=== PATIENT | female | born 1995 ===

== ENCOUNTER 2017-02-19 16:20 | Emergency (ER) | payer MEDICAID, OTHER ==
[2017-02-19 16:21] VITALS: BMI 33.1
[2017-02-19 16:34] VITALS: BP 119/70; PULSE 90; RESP 16; TEMP 97.8; O2SAT 97
--- NOTE | 2017-02-19 17:20 | ED PDOC ---
HPI: Back Time Seen by Provider: 02/19/17 16:35 Chief Complaint (Nursing): Back Pain Chief Complaint (Provider): Back Pain History Per: Patient History/Exam Limitations: no limitations Onset/Duration Of Symptoms: Days (x3 days) Current Symptoms Are (Timing): Still Present Additional Complaint(s): 21 y/o female presents to the emergency department with a complaint of a lower left mid back pain x3 days. Patient states pain had worsened within the last couple of days. Denies heavy lifting, pain during urination, bloody urine, abdominal pain, nausea, vomiting, or fever. Of note, patient admits being diagnosed with pyelonephritis 2 times in the past. PMD: Dr. Jose Ayala MD Past Medical History Reviewed: Historical Data (Pyelonephritis 2x), Nursing Documentation, Vital Signs Vital Signs: Last Vital Signs Temp 97.8 F 02/19/17 16:32 Pulse 90 02/19/17 16:32 Resp 16 02/19/17 16:32 BP 119/70 02/19/17 16:32 Pulse Ox 97 02/19/17 16:32 - Medical History PMH: Asthma (mild intermittent) - Family History Family History: States: Unknown Family Hx - Social History Current smoker - smoking cessation education provided: No Alcohol: None Drugs: Denies - Home Medications Home Medications: Ambulatory Orders Medication Instructions Recorded Nitrofurantoin Macrocrystals 100 mg PO BID #14 cap 02/19/17 [Macrobid] - Allergies Allergies/Adverse Reactions: Allergies Allergy/AdvReac Type Severity Reaction Status Date / Time shrimp Allergy RASH Verified 02/19/17 16:31 Review of Systems ROS Statement: Except As Marked, All Systems Reviewed And Found Negative Constitutional: Negative for: Fever Gastrointestinal: Negative for: Nausea, Vomiting, Abdominal Pain Genitourinary Female: Negative for: Dysuria, Hematuria Musculoskeletal: Positive for: Back Pain (Lower) Physical Exam - Reviewed Nursing Documentation Reviewed: Yes Vital Signs Reviewed: Yes - Physical Exam Appears: Positive for: Non-toxic, No Acute Distress Head Exam: Positive for: ATRAUMATIC, NORMOCEPHALIC Skin: Positive for: Normal Color, Warm, Dry Neck: Positive for: Normal, Supple Cardiovascular/Chest: Positive for: Regular Rate, Rhythm. Negative for: Murmur Respiratory: Positive for: Normal Breath Sounds. Negative for: Accessory Muscle Use, Respiratory Distress Gastrointestinal/Abdominal: Positive for: Normal Exam, Soft. Negative for: Tenderness (No suprapubic tenderness) Back: Positive for: L CVA Tenderness. Negative for: Other (No midline or lumbar tenderness) Extremity: Positive for: Normal ROM. Negative for: Pedal Edema Neurologic/Psych: Positive for: Alert, Oriented - ECG O2 Sat by Pulse Oximetry: 97 (RA) Pulse Ox Interpretation: Normal Medical Decision Making Medical Decision Making: Time: 16:35 Initial impression: Kidney stones vs Urinary Tract Infection vs Pyelonephritis Initial plan: --ED Urine Dipstick (POC) --UPreg --ABD & Pelvis w/o PO or IV Contrast (CT)-no acute findings. --Ultram 50 mg PO --Urinalysis Stat --Revaluation Time: 17:47 --Abdominal CT shows no sign of abnormality and is negative for stones. ---Ua: shows UTI will tx with macrobid and send for culture. advised to f.u with pmd for further eval and if with fever chills nausea to return to ED. VS stable pt understands and agrees. IMPRESSION: No acute findings related to/accounting for the clinical presentation. Additional benign and/or incidental findings described above. Scribe Attestation: Documented by Vera Montiel, acting as a scribe for Maryann Alberts PA-C. Provider Scribe Attestation: All medical record entries made by the Scribe were at my direction and personally dictated by me. I have reviewed the chart and agree that the record accurately reflects my personal performance of the history, physical exam, medical decision making, and the department course for this patient. I have also personally directed, reviewed, and agree with the discharge instructions and disposition. Disposition - Clinical Impression Clinical Impression: UTI (urinary tract infection) - Patient ED Disposition Is Patient to be Admitted: No Counseled Patient/Family Regarding: Studies Performed, Diagnosis, Need For Followup, Rx Given - Disposition Referrals: [facility] [Outside] formerly [facility] [Outside] Disposition: Routine/Home Disposition Time: 18:08 Condition: STABLE Prescriptions: Nitrofurantoin Macrocrystals [Macrobid] 100 mg PO BID #14 cap Instructions: Urinary Tract Infection in Women (ED)
--- NOTE | 2017-02-19 17:49 | CT ---
PROCEDURE: CT Abdomen and Pelvis without intravenous or oral contrast HISTORY: left CVA tenderness COMPARISON: None. TECHNIQUE: Technique Contiguous axial images of the abdomen and pelvis without intravenous or oral contrast. Radiation dose: Total exam DLP = 1013.91 mGy-cm. This CT exam was performed using one or more of the following dose reduction techniques: Automated exposure control, adjustment of the mA and/or kV according to patient size, and/or use of iterative reconstruction technique. FINDINGS: LOWER THORAX: Unremarkable. LIVER: Hepatic steatosis. No focal masses. No intrahepatic bile duct dilatation or perihepatic ascites. GALLBLADDER AND BILE DUCTS: Unremarkable. PANCREAS: Unremarkable. No ductal dilatation. SPLEEN: Unremarkable. No splenomegaly. ADRENALS: Unremarkable. KIDNEYS AND URETERS: Unremarkable. No hydronephrosis. BLADDER: Unremarkable. No calculus. REPRODUCTIVE: Unremarkable. APPENDIX: Unremarkable. Normal appendix. STOMACH AND BOWEL: Unremarkable. No obstruction. No gross mural thickening. PERITONEUM: Unremarkable. No significant fluid collection. No free air. LYMPH NODES: Unremarkable. No enlarged lymph nodes. VASCULATURE: Unremarkable. No aortic aneurysm. BONES: No acute fracture. OTHER FINDINGS: None . IMPRESSION: No acute findings related to/accounting for the clinical presentation. Additional benign and/or incidental findings described above.
[2017-02-19 18:03] LABS: RBC URINE 6 /hpf (0-3); URINE BACTERIA MANY (<OCC); URINE BILIRUBIN NEGATIVE (NEGATIVE); URINE BLOOD NEGATIVE (NEGATIVE); URINE COLOR YELLOW (YELLOW); URINE GLUCOSE (UA) NEG (Normal); URINE KETONE NEGATIVE (NEGATIVE); URINE LEUKOCYTE ESTERASE SMALL Leu/uL (Negative); URINE PROTEIN NEGATIVE (NEGATIVE); URINE UROBILINOGEN 0.2-1.0 mg/dL (0.2-1.0); WBC URINE 5 /hpf (0-5)
== END 2017-02-19 18:17 | disposition home or self-care (01) ==
LOC: H.ER 16:20
DX: N39.0 Urinary tract infection, site not specified (principal); J45.909 Unspecified asthma, uncomplicated

== ENCOUNTER 2017-05-19 12:05 | Emergency (ER) | payer MEDICAID ==
[2017-05-19 12:05] VITALS: BMI 33.1
[2017-05-19 12:17] VITALS: BP 128/85; PULSE 73; RESP 16; TEMP 97; O2SAT 100
--- NOTE | 2017-05-19 12:34 | ED PDOC ---
HPI: Female Pain Time Seen by Provider: 05/19/17 12:33 Chief Complaint (Nursing): Female Genitourinary Chief Complaint (Provider): VAGINAL BLEEDING History Per: Patient (21 Y/O LMP 6 WEEKS HERE WITH VAGINAL BLEEDING TODAY WITH MILD CRAMPING. PATIENT HAS US APPT IN 2 WEEKS. DENIES ANY OTHER COMPLAINTS. ) Past Medical History Reviewed: Historical Data, Nursing Documentation, Vital Signs Vital Signs: Last Vital Signs Temp 97 F L 05/19/17 12:14 Pulse 73 05/19/17 12:14 Resp 16 05/19/17 12:14 BP 128/85 05/19/17 12:14 Pulse Ox 100 05/19/17 12:14 - Medical History PMH: Asthma (mild intermittent) - Family History Family History: States: Unknown Family Hx - Home Medications Home Medications: Ambulatory Orders Medication Instructions Recorded Nitrofurantoin Macrocrystals 100 mg PO BID #14 cap 02/19/17 [Macrobid] - Allergies Allergies/Adverse Reactions: Allergies Allergy/AdvReac Type Severity Reaction Status Date / Time shrimp Allergy RASH Verified 02/19/17 16:31 Review of Systems ROS Statement: Except As Marked, All Systems Reviewed And Found Negative Physical Exam - Reviewed Nursing Documentation Reviewed: Yes Vital Signs Reviewed: Yes - Physical Exam Appears: Positive for: Well, Non-toxic, No Acute Distress Head Exam: Positive for: ATRAUMATIC, NORMAL INSPECTION, NORMOCEPHALIC Skin: Positive for: Normal Color, Warm, DRY Eye Exam: Positive for: EOMI, Normal appearance, PERRL ENT: Positive for: Normal ENT Inspection Neck: Positive for: Normal, Painless ROM Cardiovascular/Chest: Positive for: Regular Rate, Rhythm Respiratory: Positive for: CNT, Normal Breath Sounds Gastrointestinal/Abdominal: Positive for: Normal Exam, Bowel Sounds, Soft Pelvic Exam: Positive for: Active Bleeding, Other (CLOSED CERVICAL OS). Negative for: No Cerv. Motion Tender, Tender Adnexa Back: Positive for: Normal Inspection Extremity: Positive for: Normal ROM Neurologic/Psych: Positive for: Alert, Oriented - Laboratory Results Result Diagrams: 05/19/17 12:50 05/19/17 12:50 - ECG O2 Sat by Pulse Oximetry: 100 - Progress ED Course And Treament: D/W DR. CORONADO US: NO IUP TYPE: O POSITIVE Disposition - Clinical Impression Clinical Impression: Threatened miscarriage - Patient ED Disposition Is Patient to be Admitted: No - Disposition Disposition: Routine/Home Disposition Time: 16:31 Condition: FAIR Additional Instructions: F/U WITH DR. GONCALVES ON THURSDAY FOR REPEAT BETA/REPEAT EVALUATION. Instructions: Threatened Miscarriage (ED) Forms: [employer] (Georgian)
[2017-05-19 13:07] LABS: BASO # 0.1 K/uL (0.0-0.2); BASO % 0.9 % (0.0-2.0); EOS # 0.2 K/uL (0.0-0.7); EOS % 1.4 % (0.0-4.0); HEMOGLOBIN 12.7 g/dL (12.0-16.0); LYMPH # 2.3 K/uL (1.0-4.3); MEAN CORPUSCULAR HEMOGLOBIN 26.2 pg (27.0-31.0); MEAN CORPUSCULAR HGB CONC 32.4 g/dL (33.0-37.0); MEAN PLATELET VOLUME 8.6 fl (7.2-11.7); MONO # 0.7 K/uL (0.0-0.8); MONO % 6.2 % (0.0-10.0); NEUT # 8.2 K/uL (1.8-7.0); NEUT % 71.5 % (50.0-75.0); RBC 4.84 Mil/uL (3.80-5.20); RED CELL DISTRIBUTION WIDTH 16.4 % (11.5-14.5); WHITE BLOOD COUNT 11.5 K/uL (4.8-10.8)
[2017-05-19 13:31] LABS: BLOOD UREA NITROGEN 9 mg/dl (7-17); CALCIUM 9.4 mg/dL (8.4-10.2); GFR AFRICAN-AMERICAN > 60; GFR NON-AFRICAN AMERICAN > 60
--- NOTE | 2017-05-19 15:49 | US ---
Indication: Vaginal bleeding Comparison: OB ltd/ biophysical profile Technique: Transvaginal pelvic ultrasound. Findings: The uterus measures approximately 8.5 x 4.5 x 5.4 cm. Anteverted. Cervix length measures 3.9 cm. The endometrium measures approximately 1.4 cm in diameter. No evidence of intrauterine gestational sac, yolk sac, or pole. The right ovary measures 2.6 x 1.7 x 2.5 cm. The left ovary measures 2.3 x 1.3 x 2.5 cm. Blood flow was demonstrated to both ovaries. Impression: No evidence of intrauterine gestational sac, yolk sac, or pole. No evidence of intrauterine gestational sac. If indeed the patient is based on serum beta HCG values, the sonographic findings represent either: Very early IUP; embryonic demise; ectopic gestation. Follow-up with serial quantitative serum beta HCG measurements and post OBGYN follow-up as clinically indicated, since ectopic gestation cannot be excluded based only on sonographic findings.
== END 2017-05-19 16:55 | disposition home or self-care (01) ==
LOC: H.ER 12:05
DX: O20.0 Threatened abortion (principal)

== ENCOUNTER 2017-05-25 11:05 | Emergency (ER) | payer MEDICAID ==
[2017-05-25 11:10] VITALS: BP 116/64; PULSE 80; TEMP 98
[2017-05-25 11:11] VITALS: BMI 33.7
[2017-05-25 11:40] VITALS: O2SAT 98
[2017-05-25 12:53] LABS: BASO % 0.4 % (0.0-2.0); EOS # 0.2 K/uL (0.0-0.7); EOS % 2.3 % (0.0-4.0); HEMOGLOBIN 11.8 g/dL (12.0-16.0); LYMPH # 2.6 K/uL (1.0-4.3); LYMPH % 26.8 % (20.0-40.0); MEAN CELL VOLUME 80.8 fl (81.0-99.0); MEAN CORPUSCULAR HEMOGLOBIN 26.8 pg (27.0-31.0); MEAN CORPUSCULAR HGB CONC 33.2 g/dL (33.0-37.0); MEAN PLATELET VOLUME 8.4 fl (7.2-11.7); MONO # 0.8 K/uL (0.0-0.8); MONO % 7.8 % (0.0-10.0); NEUT # 6.1 K/uL (1.8-7.0); NEUT % 62.7 % (50.0-75.0); RBC 4.39 Mil/uL (3.80-5.20); RED CELL DISTRIBUTION WIDTH 15.8 % (11.5-14.5); WHITE BLOOD COUNT 9.8 K/uL (4.8-10.8)
[2017-05-25 13:02] LABS: BLOOD UREA NITROGEN 12 mg/dl (7-17); CALCIUM 9.5 mg/dL (8.4-10.2); GFR AFRICAN-AMERICAN > 60; GFR NON-AFRICAN AMERICAN > 60
--- NOTE | 2017-05-25 14:11 | ED PDOC ---
HPI: General Adult Time Seen by Provider: 05/25/17 12:03 Chief Complaint (Nursing): Abdominal Pain Chief Complaint (Provider): im having a miscarriage History Per: Patient History/Exam Limitations: no limitations Current Symptoms Are (Timing): Still Present Additional Complaint(s): 21yo female states told last week having a miscarriage, requesting her bloodwork be rechecked. States having trace bleeding and cramping still. No weakness or dizziness. States took home preg test yesterday and was negative. Called clinic today and told to come to ED. Past Medical History Vital Signs: Last Vital Signs Temp 98 F 05/25/17 11:09 Pulse 80 05/25/17 11:09 Resp BP 116/64 05/25/17 11:09 Pulse Ox 98 05/25/17 14:12 - Medical History PMH: Asthma (mild intermittent) - Family History Family History: States: Unknown Family Hx - Home Medications Home Medications: Ambulatory Orders Medication Instructions Recorded Nitrofurantoin Macrocrystals 100 mg PO BID #14 cap 02/19/17 [Macrobid] - Allergies Allergies/Adverse Reactions: Allergies Allergy/AdvReac Type Severity Reaction Status Date / Time shrimp Allergy RASH Verified 02/19/17 16:31 Review of Systems ROS Statement: Except As Marked, All Systems Reviewed And Found Negative Constitutional: Negative for: Fever, Chills, Weakness, Malaise Respiratory: Negative for: Cough, Shortness of Breath Gastrointestinal: Negative for: Nausea, Vomiting Genitourinary Female: Positive for: Vaginal Bleeding, Pelvic Pain. Negative for : Dysuria, Incontinence, Hematuria, Vaginal Discharge Musculoskeletal: Negative for: Neck Pain, Back Pain Skin: Negative for: Rash, Lesions, Jaundice Neurological: Negative for: Weakness, Numbness, Headache, Dizziness Physical Exam - Reviewed Nursing Documentation Reviewed: Yes Vital Signs Reviewed: Yes - Physical Exam Appears: Positive for: Well, Non-toxic, No Acute Distress Head Exam: Positive for: ATRAUMATIC, NORMAL INSPECTION, NORMOCEPHALIC Skin: Positive for: Normal Color, Warm, DRY Eye Exam: Positive for: EOMI, Normal appearance, PERRL ENT: Positive for: Normal ENT Inspection Neck: Positive for: Normal, Painless ROM Cardiovascular/Chest: Positive for: Regular Rate, Rhythm Respiratory: Positive for: CNT, Normal Breath Sounds Gastrointestinal/Abdominal: Positive for: Bowel Sounds, Soft. Negative for: Tenderness, Guarding Back: Positive for: Normal Inspection Extremity: Positive for: Normal ROM Neurologic/Psych: Positive for: Alert, Oriented. Negative for: Motor/Sensory Deficits - Laboratory Results Result Diagrams: 05/25/17 12:45 05/25/17 12:45 - ECG O2 Sat by Pulse Oximetry: 98 Medical Decision Making Medical Decision Making: bloodwork initiated for spontaneous miscarriage. BHCGs trending down over last 2 values. Repeat today HCG ~6 CBC unremarkable Discussed results and need for followup w OBGYN. Disposition - Clinical Impression Clinical Impression: Spontaneous - Patient ED Disposition Is Patient to be Admitted: No Counseled Patient/Family Regarding: Studies Performed, Diagnosis, Need For Followup - Disposition [facility] Disposition: Routine/Home Disposition Time: 13:30 Condition: STABLE Additional Instructions: Return to ER for any worse or new symptoms/ Instructions: Spontaneous Miscarriage (ED) Forms: [employer] (Serbian)
== END 2017-05-25 14:15 | disposition home or self-care (01) ==
LOC: H.ER 11:05
DX: O03.9 Complete or unspecified spontaneous abortion without complication (principal)